=== PATIENT | female | born 1945 | race Caucasian/White ===

== ENCOUNTER 2016-07-03 09:35 | Outpatient (CLI) | payer OTHER ==
--- NOTE | 2016-07-03 10:14 | DIAGNOSTIC IMAGING REPORT ---
PROCEDURE: XR CLAVICLE - LEFT INDICATION: STERNOCLAVICULAR JOINT PAIN TECHNIQUE: Three views COMPARISON: None. FINDINGS: No fracture. Mild degenerative changes of the sternoclavicular and AC joints. Soft tissue calcifications adjacent to the humeral head suggestive of calcific tendonitis . IMPRESSION: 1. 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 Left shoulder tendonitis
--- NOTE | 2016-07-03 10:16 | DIAGNOSTIC IMAGING REPORT ---
PROCEDURE: XR CLAVICLE - RIGHT INDICATION: STERNOCLAVICULAR JOINT PAIN TECHNIQUE: Two views COMPARISON: None. FINDINGS: No fracture or suspicious osseous lesion. Mild sternoclavicular and AC joint degenerative changes. Soft tissue calcifications adjacent to the humeral head consistent with tendonitis. IMPRESSION: 1. 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 Right shoulder tendonitis
== END 2016-07-03 23:00 ==
LOC: XR SRH 09:35
DX: M25.50 Pain in unspecified joint (principal); E11.9 Type 2 diabetes mellitus without complications; E78.2 Mixed hyperlipidemia; I10 Essential (primary) hypertension